=== PATIENT | female | born 1980 ===

== ENCOUNTER → 2017-10-26 | Outpatient (CLI) | payer OTHER ==
[~2017-10-26] MED LIST: ACET500; BENADRYL25 MG PO; CEPH500 PO; CIPRO500 MG PO; CLARAVIS PO; DIPH50 PO; Flagyl500 MG PO; IBUP600 PO; IBUP800 PO; METO10 PO; NAPR500 PO; OXYACE5T PO; POLY500 PO; PROM25 PO; Percocet 5-3251 EACH PO; RANI150 PO; SULTRIDS PO; TRAM50 PO; Verotin-Gr Cap1 EACH PO; Zofran Odt8 MG SL; Zofran4 MG PO
[2017-10-29 04:12] LABS: CHLAMYDIA TRACHOMATIS, NAA Negative (Negative); NEISSERIA GONORRHOEAE, NAA Negative (Negative)
== END ==
LOC: LAB SHORT 16:53 → LAB 16:53
PROVIDERS: Obstetrics & Gynecology
DX: Z34.83 Encounter for supervision of other normal pregnancy, third trimester (principal); Z3A.35 35 weeks gestation of pregnancy
CPT/HCPCS: 87081; 87491; 87591; 87653

== ENCOUNTER 2017-11-01 06:15 | Inpatient (IN) | payer OTHER ==
[~2017-11-01] VITALS: Ht 157.5 cm; Wt 106.0 kg
[~2017-11-01 06:15] MED LIST changes: -ACET500
[2017-11-01 07:52] LABS: BASOPHILS ABSOLUTE AUTO 0.03 K/mm3 (0.00-0.23); BASOPHILS PERCENT AUTO 0 % (0-2); EOSINOPHILS ABSOLUTE AUTO 0.15 K/mm3 (0.00-0.68); EOSINOPHILS PERCENT AUTO 1 % (0-6); Hematocrit 35.2 % (33.0-51.0); Hemoglobin 11.9 g/dL (11.5-16.0); IMMATURE GRAN ABSOLUTE AUTO 0.09 K/mm3 (0.00-0.10); IMMATURE GRAN PERCENT AUTO 1 % (0-1); LYMPHOCYTES ABSOLUTE AUTO 1.81 K/mm3 (0.84-5.20); LYMPHOCYTES PERCENT AUTO 17 % (21-46); MONOCYTES ABSOLUTE AUTO 0.77 K/mm3 (0.16-1.47); MONOCYTES PERCENT AUTO 7 % (4-13); Mean Corpuscular HGB Conc 33.8 g/dL (31.5-36.5); Mean Corpuscular Volume 86 fL (80-100); Mean Platelet Volume 11.9 fL (9.1-12.4); NEUTROPHILS ABSOLUTE AUTO 8.06 K/mm3 (1.96-9.15); NEUTROPHILS PERCENT AUTO 74 % (41-73); Platelet Count 201 K/mm3 (150-400); RDW Coefficient Variation 12.7 % (11.7-14.2); RDW Standard Deviation 39.2 fL (35.1-46.3); Red Blood Cell Count 4.11 M/mm3 (3.80-5.20); White Blood Cell Count 10.91 K/mm3 (4.00-11.30)
[2017-11-02 05:18] LABS: BASOPHILS ABSOLUTE AUTO 0.02 K/mm3 (0.00-0.23); BASOPHILS PERCENT AUTO 0 % (0-2); EOSINOPHILS ABSOLUTE AUTO 0.24 K/mm3 (0.00-0.68); EOSINOPHILS PERCENT AUTO 2 % (0-6); Hematocrit 31.5 % (33.0-51.0); Hemoglobin 10.6 g/dL (11.5-16.0); IMMATURE GRAN ABSOLUTE AUTO 0.08 K/mm3 (0.00-0.10); IMMATURE GRAN PERCENT AUTO 1 % (0-1); LYMPHOCYTES ABSOLUTE AUTO 2.43 K/mm3 (0.84-5.20); LYMPHOCYTES PERCENT AUTO 20 % (21-46); MONOCYTES ABSOLUTE AUTO 0.98 K/mm3 (0.16-1.47); MONOCYTES PERCENT AUTO 8 % (4-13); Mean Corpuscular HGB 28.7 pg (26.0-34.0); Mean Corpuscular HGB Conc 33.7 g/dL (31.5-36.5); Mean Corpuscular Volume 85 fL (80-100); Mean Platelet Volume 11.7 fL (9.1-12.4); NEUTROPHILS ABSOLUTE AUTO 8.63 K/mm3 (1.96-9.15); NEUTROPHILS PERCENT AUTO 70 % (41-73); Platelet Count 159 K/mm3 (150-400); RDW Coefficient Variation 12.7 % (11.7-14.2); RDW Standard Deviation 38.7 fL (35.1-46.3); Red Blood Cell Count 3.69 M/mm3 (3.80-5.20); White Blood Cell Count 12.38 K/mm3 (4.00-11.30)
[2017-11-02] MEDS ORDERED: ACET500 (09:29)
== END 2017-11-02 14:05 | disposition home or self-care (01) | DRG 768 ==
LOC: OBS 06:15 → BC 06:15 → OBS 07:25 → BC 07:26
PROVIDERS: Obstetrics & Gynecology
PROC: 10E0XZZ Delivery of Products of Conception, External Approach (ICD-10-PCS; principal; 2017-11-01)
PROC: 0UBLXZZ Excision of Vestibular Gland, External Approach (ICD-10-PCS; 2017-11-01)
PROC: 10907ZC Drainage of Amniotic Fluid, Therapeutic from Products of Conception, Via Natural or Artificial Opening (ICD-10-PCS; 2017-11-01)
DX: O60.14X0 Preterm labor third trimester with preterm delivery third trimester, not applicable or unspecified (principal); Z37.0 Single live birth; Z3A.36 36 weeks gestation of pregnancy; J45.909 Unspecified asthma, uncomplicated; K21.9 Gastro-esophageal reflux disease without esophagitis; N75.0 Cyst of Bartholin's gland; O99.89 Other specified diseases and conditions complicating pregnancy, childbirth and the puerperium; O99.52 Diseases of the respiratory system complicating childbirth; O99.62 Diseases of the digestive system complicating childbirth
CPT/HCPCS: 36415; 85025; 85460; J2590; J2790; J3010; J7120

== ENCOUNTER 2020-07-15 07:59 | Observation (INO) | payer OTHER ==
[~2020-07-15] VITALS: Ht 157.5 cm; Wt 68.0 kg
[~2020-07-15 07:59] MED LIST changes: +ACET500
[2020-07-15 08:33] LABS: BASOPHILS ABSOLUTE AUTO 0.03 K/mm3 (0.00-0.23); BASOPHILS PERCENT AUTO 0 % (0-2); EOSINOPHILS ABSOLUTE AUTO 0.18 K/mm3 (0.00-0.68); EOSINOPHILS PERCENT AUTO 2 % (0-6); Hematocrit 46.7 % (33.0-51.0); IMMATURE GRAN ABSOLUTE AUTO 0.03 K/mm3 (0.00-0.10); IMMATURE GRAN PERCENT AUTO 0 % (0-1); LYMPHOCYTES ABSOLUTE AUTO 1.26 K/mm3 (0.84-5.20); LYMPHOCYTES PERCENT AUTO 12 % (21-46); MONOCYTES ABSOLUTE AUTO 0.46 K/mm3 (0.16-1.47); MONOCYTES PERCENT AUTO 5 % (4-13); Mean Corpuscular HGB 28.8 pg (26.0-34.0); Mean Corpuscular HGB Conc 32.1 g/dL (31.5-36.5); Mean Corpuscular Volume 90 fL (80-100); Mean Platelet Volume 10.7 fL (9.1-12.4); NEUTROPHILS ABSOLUTE AUTO 8.33 K/mm3 (1.96-9.15); NEUTROPHILS PERCENT AUTO 81 % (41-73); Platelet Count 234 K/mm3 (150-400); RDW Coefficient Variation 12.3 % (11.7-14.2); RDW Standard Deviation 40.3 fL (35.1-46.3); Red Blood Cell Count 5.21 M/mm3 (3.80-5.20); White Blood Cell Count 10.29 K/mm3 (4.00-11.30)
[2020-07-15 08:54] LABS: Alanine Aminotransfer (ALT/SGP 34 U/L (12-78); Albumin, Blood 4.4 g/dL (3.4-5.0); Albumin/Globulin Ratio 1.1 (0.8-1.8); Alk Phos 79 U/L (50-136); Anion Gap 10 mmol/L (6-16); Aspartate Aminotrans (AST/SGOT 42 U/L (12-37); Bilirubin, Total 0.6 mg/dL (0.1-1.0); Blood Urea Nitrogen 20 mg/dL (8-24); Bun/Creatinine Ratio 28.4 (12.0-20.0); CO2, Blood 22 mmol/L (21-32); Calcium, Blood 8.8 mg/dL (8.5-10.1); Chloride, Blood 107 mmol/L (98-108); Globulin, Blood 3.9 g/dL (2.2-4.0); Glomerular Filtration Rate >60 (60-); Glucose, Blood 89 mg/dL (70-99); Sodium, Blood 139 mmol/L (136-145); Total Protein, Blood 8.3 g/dL (6.4-8.2)
[2020-07-15 09:56] LABS: Source, Urine Clean Catch
[2020-07-15 10:06] LABS: Appearance, Urine Clear (Clear); Bilirubin, Urine Neg (Neg); Blood, Urine 1+ (Neg); Color, Urine Yellow (P-Yellow); Glucose Qualitative, Urine Neg (Neg); Ketones, Urine 4+ (Neg); Leukocyte Esterase, Urine Neg (Neg); Nitrite, Urine Neg (Neg); Protein, Urine Neg (Neg); Specific Gravity, Urine 1.025 (1.003-1.022); Urobilinogen, Urine NORM (Normal)
[2020-07-15 10:26] LABS: Bacteria Few /hpf; Red Blood Cells, Urine 0-2 /hpf (0-2); Squamous Epithelial Cells Few /hpf (Few); White Blood Cells, Urine 0-2 /hpf (0-5)
[2020-07-15] MEDS ORDERED: BANOPHEN25 MG PO (14:42)
--- NOTE | 2020-07-15 14:58 | NUR ---
PT ARRIVED TO FLOOR FROM ER AND HAS BEEN RESTING IN BED. DENIES SIGNIFICANT PAIN AND MINIMAL NAUSEA, MEDICATED ONCE FOR NAUSEA. CALL LIGHT IN REACH, FAMILY MEMBER AT BEDSIDE. PT NPO PER ORDERS FOR POTENTIAL PROCEDURE TODAY.
--- NOTE | 2020-07-15 16:33 | NUR ---
SHIFT SUMMARY NO ACUTE CHANGES SINCE ARRIVAL TO UNIT PT RESTING IN BED, FAMILY MEMBER AT BEDSIDE. PT C/O NAUSEA X1. REPORTS PAIN TOLERABLE DURING SHIFT. PT NPO SINCE ARRIVAL TO UNIT FOR POSSIBLE SURGERY TODAY OR TOMORROW.
[2020-07-16 04:45] LABS: BASOPHILS ABSOLUTE AUTO 0.03 K/mm3 (0.00-0.23); BASOPHILS PERCENT AUTO 0 % (0-2); EOSINOPHILS ABSOLUTE AUTO 0.05 K/mm3 (0.00-0.68); EOSINOPHILS PERCENT AUTO 1 % (0-6); Hematocrit 38.8 % (33.0-51.0); Hemoglobin 12.4 g/dL (11.5-16.0); IMMATURE GRAN ABSOLUTE AUTO 0.03 K/mm3 (0.00-0.10); IMMATURE GRAN PERCENT AUTO 0 % (0-1); LYMPHOCYTES ABSOLUTE AUTO 1.22 K/mm3 (0.84-5.20); LYMPHOCYTES PERCENT AUTO 13 % (21-46); MONOCYTES ABSOLUTE AUTO 0.62 K/mm3 (0.16-1.47); MONOCYTES PERCENT AUTO 7 % (4-13); Mean Corpuscular HGB 29.3 pg (26.0-34.0); Mean Corpuscular Volume 92 fL (80-100); Mean Platelet Volume 10.9 fL (9.1-12.4); NEUTROPHILS ABSOLUTE AUTO 7.58 K/mm3 (1.96-9.15); NEUTROPHILS PERCENT AUTO 80 % (41-73); Platelet Count 230 K/mm3 (150-400); RDW Standard Deviation 43.2 fL (35.1-46.3); Red Blood Cell Count 4.23 M/mm3 (3.80-5.20); White Blood Cell Count 9.53 K/mm3 (4.00-11.30)
[2020-07-16 05:10] LABS: Alanine Aminotransfer (ALT/SGP 48 U/L (12-78); Albumin, Blood 3.5 g/dL (3.4-5.0); Albumin/Globulin Ratio 1.1 (0.8-1.8); Alk Phos 73 U/L (50-136); Anion Gap 14 mmol/L (6-16); Aspartate Aminotrans (AST/SGOT 43 U/L (12-37); Bilirubin, Total 0.9 mg/dL (0.1-1.0); Blood Urea Nitrogen 13 mg/dL (8-24); Bun/Creatinine Ratio 22.9 (12.0-20.0); CO2, Blood 14 mmol/L (21-32); Chloride, Blood 112 mmol/L (98-108); Creatinine, Blood 0.57 mg/dL (0.40-1.00); Globulin, Blood 3.2 g/dL (2.2-4.0); Glomerular Filtration Rate >60 (60-); Glucose, Blood 85 mg/dL (70-99); Potassium, Blood 4.5 mmol/L (3.5-5.5); Sodium, Blood 140 mmol/L (136-145); Total Protein, Blood 6.7 g/dL (6.4-8.2)
--- NOTE | 2020-07-16 06:04 | NUR ---
SHIFT SUMMARY: KELVIN IS A&OX4. VSS, NO ACUTE EVENTS OVERNIGHT. SHE IS NPO, WAS PREVIOUSLY UNABLE TO TOLERATE EVEN ICE CHIPS PRIOR TO MIDNIGHT. SHE IS INDEPENDENT IN THE ROOM. IV TO LEFT AC PATENT. SHE USES THE CALL LIGHT APPROPRIATELY. COVID SWAB OBTAINED. SHE IS LYING IN BED WITH HER CALL LIGHT IN REACH. WILL REPORT TO DAY SHIFT RN.
[2020-07-16 06:33] LABS: Influenza A, PCR Negative (NEGATIVE); Influenza B, PCR Negative (NEGATIVE); Resp Syncytial Virus, PCR Negative (NEGATIVE); SARS-Cov-2 (COVID-19) PCR, MMC Negative (NEGATIVE)
--- NOTE | 2020-07-16 18:30 | NUR ---
SHIFT SUMMARY PT REMAINED NPO UNTIL [address] MARY ROUNDED AND STATED SHE WOULD NOT BE ABLE TO COMPLETE SURGERY TONIGHT. CLEAR LQS THEN GIVEN SLOWLY IT CAUSED HER TO BECOME NAUSEATED YESTERDAY; SO FAR TOLERATING WELL. MIN ABD PAIN, TYLENOL x 1.
--- NOTE | 2020-07-17 04:05 | NUR ---
SHIFT SUMMARY: NO ACUTE CHANGES OVER NIGHT. PT HAS BEEN NPO SINCE MIDNIGHT FOR SURGERY TODAY. PT WANTING TO AVOID IV NARCOTICS THIS SHIFT; REPORTING THE MEDICATIONS MAKE HER FEEL NAUSEATED. PT ALSO WANTING TO AVOID ZOFRAN IT GIVES HER A HEADACHE. PAIN BEING MANAGED WITH TYLENOL PER EMAR. IVF INFUSING PER ORDERS. VS WNL. PT VOIDING WELL. INDEPENDENT IN ROOM. PT APPEARS TO BE RESTING MOST OF SHIFT.
--- NOTE | 2020-07-17 07:26 | NUR ---
0700-recvd report from previous RN, pt sleeping in bed, bed in lowest position, call light within each, bed rails up x 2 0725- dr bucio rounding on pt
--- NOTE | 2020-07-17 11:18 | NUR ---
PT TRANSPORTED TO DAYSURGERY VIA STRETCHER
--- NOTE | 2020-07-17 11:44 | NUR ---
PT TRANSFERED TO [facility] FROM FLOOR VIA GURNY. History, Chart, Medications and Allergies reviewed before start of procedure. Lungs clear T/O to Auscultation. Patient confirms NPO status and agrees with scheduled surgery. Pre-Op teaching done. Pt verbalizes understanding.
--- NOTE | 2020-07-17 14:15 | NUR ---
POST OP PT ARRIVES VERY DROWSY, SLID OVER W/ 4 PERSON ASSIST TO HOSPITAL BED. REPOSITIONED TO COMFORT. C/O NAUSEA AND NOT FEELING WELL. COOL WASHCLOTH PLACED TO FOREHEAD. ZOFRAN GIVEN. ABD LAP SITES x 5 W/ WOUND GLUE OVER. NO DRAINAGE NOTED. ABD SOFT, SLIGHTLY DISTENDED. VSS.
--- NOTE | 2020-07-18 04:58 | NUR ---
SHIFT SUMMARY: PT POD#1 FOR LAP TAMMIE. LAP SITES C/D/I WITH WOUND GLUE. ACTIVE BT X4. PT REPORTS PASSING A SMALL AMOUNT OF FLATUS. TOLERATING PO. DENIES N/V THIS SHIFT. REPORTS MILD DIZZINESS WHILE GETTING TO THE BATHROOM AND RELATES THIS TO ANESTHESIA. MEDICATED WITH TYLENOL AND 1 NORCO TAB. PT STILL WANTING TO AVOID NARCOTICS BUT WILL TAKE NORCO IF THE PAIN IS SEVERE ENOUGH. PT GIVEN ICE PACK FOR HEADACHE WHICH HELPED. PT CURRENTLY RESTING. UNABLE TO SLEEP MOST OF NIGHT.
[2020-07-18] MEDS ORDERED: Acetaminophen325 M1 PO (11:22)
[2020-07-18] MEDS ORDERED: HYDR1TAB94 PO (11:23)
[2020-07-18] MEDS ORDERED: ONDA4 PO (11:23)
--- NOTE | 2020-07-18 13:42 | NUR ---
DISCHARGE PT EDUCATED AND STATES UNDERSTANDING. EATING, DRINKING, AND PASSING SMALL AMOUNTS OF GAS. SCRIPT GIVEN. AWAITING FOR RIDE HOME.
--- NOTE | 2020-07-18 15:27 | NUR ---
PT DISCHARGED AT 1500 PER APPLICATIONS MANAGER. DISCHARGE INSTRUCTIONS REVIEWED BY RITU W[place] WITH PATIENT.
== END 2020-07-18 15:00 | disposition home or self-care (01) ==
LOC: ER 07:59 → SURS 08:00 → ER 08:00 → SURS 08:01
PROVIDERS: Emergency Medicine; Surgery; ADMIT Surgery
PROC: BF03YZZ Plain Radiography of Gallbladder and Bile Ducts using Other Contrast (ICD-10-PCS; principal; 2020-07-17 11:15)
PROC: 0FT44ZZ Resection of Gallbladder, Percutaneous Endoscopic Approach (ICD-10-PCS; principal; 2020-07-17 11:15)
DX: K80.00 Calculus of gallbladder with acute cholecystitis without obstruction (principal); Z88.8 Allergy status to other drugs, medicaments and biological substances
CPT/HCPCS: 0241U; 36415; 74177; 74300; 76705; 80053; 81001; 81025; 83690; 84484; 85025; 88305; 93005; 93010; 96361; 96374-59; 96375; 96376; 99285-25; A9270; C1729; G0378; J0690; J1100; J1170; J1885; J2250; J2405; J2704; J3010; J7030; J7120; Q9967

== ENCOUNTER → 2022-10-21 | Outpatient (CLI) | payer OTHER ==
[~2022-10-21] MED LIST changes: +Acetaminophen325 M1 PO; +BANOPHEN25 MG PO; +HYDR1TAB94 PO; +ONDA4 PO
== END | disposition home or self-care (01) ==
LOC: LAB 08:56 → LAB SHORT 08:56
DX: M54.9 Dorsalgia, unspecified (principal); R30.0 Dysuria
CPT/HCPCS: 87086